=== PATIENT | female | born 1990 | race Caucasian/White ===

== ENCOUNTER 2025-06-20 18:03 | Emergency (ER) | payer BC, MEDICAID ==
[~2025-06-20] VITALS: Ht 172.7 cm; Wt 62.0 kg
[2025-06-20 18:35] VITALS: O2SAT 97
[2025-06-20] MEDS: ACETAMINOPHEN 500MG TABLET PO ONE (19:02)
[2025-06-20] MEDS: IBUPROFEN 800MG TABLET PO ONE (19:03)
[2025-06-20 22:52] VITALS: BP 106/73; PULSE 76; RESP 15; TEMP 36.6; O2SAT 95
== END 2025-06-20 23:01 | disposition home or self-care (01) ==
LOC: ER 18:03
DX: R07.89 Other chest pain (principal); F31.9 Bipolar disorder, unspecified; F20.9 Schizophrenia, unspecified; F41.9 Anxiety disorder, unspecified; Y09 Assault by unspecified means; Y93.89 Activity, other specified; Y92.89 Other specified places as the place of occurrence of the external cause; Y99.8 Other external cause status
CPT/HCPCS: 71250; 74176; 99284